=== PATIENT | female | born 1980 ===

== ENCOUNTER 2018-05-13 05:48 | Day surgery (SDC) | payer OTHER ==
[2018-05-07 07:39] VITALS: BMI 31.7
[2018-05-13] MEDS ORDERED: Bupivacaine 0.25% 20 ML INJ IJ ONE (07:32)
[2018-05-13] MEDS ORDERED: cefOXitin IV 2 gm in Dextrose 2 GM/50 ML BAG IVPB ONE (07:33)
[2018-05-13] MEDS ORDERED: Lidocaine/Epinephrine 1% 1:100000 10 ML IJ ONE (07:33)
[2018-05-13] MEDS ORDERED: Methylene Blue 10 mg/mL(10ml) IV ONE (07:33)
[2018-05-13] MEDS ORDERED: Midazolam 2 MG/2 ML VIAL ONE (07:38)
[2018-05-13] MEDS ORDERED: Propofol 10 mg/ml Inj (20 ML) ONE (07:38)
[2018-05-13] MEDS ORDERED: Neostigmine 1:1000 (1 mg/ml) Inj ONE (08:51)
[2018-05-13] MEDS ORDERED: HYDROmorphone 0.5 mg/0.5 ml ISec IVP PRN (09:13)
[2018-05-13 11:07] VITALS: BP 123/70; PULSE 81; RESP 18; TEMP 97; O2SAT 100
--- NOTE | 2018-05-13 20:12 | OP ---
PROCEDURE DATE: 05/13/2018 PREOPERATIVE DIAGNOSES: Uterine septum and pelvic adhesions. POSTOPERATIVE DIAGNOSES: Uterine septum, pelvic adhesions plus endometrial polyps. SURGEON: Isiah Blue MD. WORKERS' COMPENSATION HEARINGS OFFICER: Bjorn Jackman MD. FINDINGS: The patient is status post distal right salpingectomy. The patient has posterior cul-de-sac adhesions, also left perifimbrial adhesions. On chromotubation, there was no entry of dye into the left fallopian tube consistent with left cornual tubal occlusion; on the right tube, the distal portion is absent. Both ovaries are normal, and on hysteroscopy, the patient has left uterine wall endometrial polyp, which was resected. The patient has uterine septum spanning the anterior and posterior wall of the uterus about 1.5 cm thick which was resected up to the level of the fundus which the help of a resectoscope. ESTIMATED BLOOD LOSS: Less than 1 mL. COMPLICATIONS: Nil. DESCRIPTION OF PROCEDURE: After the risks, benefits, and alternatives of the planned procedures including, but not limited to infection, hemorrhage, deep vein thrombosis, atelectasis, pneumonia, pulmonary embolism, damage to the bladder, damage to the ureter, renal insufficiency, renal failure, wound infection, wound dehiscence, incisional hernia, keloid formation, damage to the large and small intestines, damage to the inferior vena cava and the aorta requiring extensive repair, anesthesia complications, electrolyte imbalance, possibility of , fluid overload, cerebral edema, embolism, and other complications that were discussed but are not listed above, have been explained to the patient and all her questions answered. Informed consent was obtained. The patient was taken to the operating room in a stable condition. Under a suitable level of general anesthesia, she was prepped and draped in a sterile fashion after having been placed in a dorsal lithotomy position. Gibbs catheter was inserted. Examination under anesthesia revealed a normal-size uterus anteverted with no adnexal mass. Through a left upper quadrant Means's point incision, a 5-mm trocar and sleeve was inserted under laparoscopic guidance and pneumoperitoneum of 3 liters was created. A 5-mm puncture site was made three fingerbreadths above the pubic symphysis through which a 5-mm trocar and sleeve were inserted. A HUMI catheter had been inserted at the beginning of the case. Posterior cul-de-sac adhesions were lysed. Chromotubation was performed only at the end of the procedure. Attention was then turned to the hysteroscopy. A weighted speculum was inserted into the vagina. The anterior lip of the cervix was grasped using a single-tooth tenaculum. The cervix was dilated to #18 Hanks dilator. A hysteroscope was then inserted. A 1-cm left uterine wall polyp was resected. Using a resectoscope, the uterine septum was resected all the way up to the level of the fundus which was approximately a 1.5 cm in thickness. The tissue from the resectoscope was submitted separately for pathology. At the end of the procedure, there was good hemostasis. A HUMI catheter was inserted into the cervix and insufflated into place. Attention was then turned back to the laparoscopy. Chromotubation was performed. There was good distention of the uterus, but no inflow of dye into the left fallopian tube consistent with cornual tubal occlusion. Peritoneal cavity was irrigated using copious amounts of saline. The saline was evacuated. The suprapubic sleeve was removed under laparoscopic guidance. Left upper quadrant sleeve was removed under laparoscopic guidance. Skin incisions were closed using 4-0 Monocryl. Instruments were then removed from the vagina. A gentle endometrial curettage was performed and tissue was submitted for pathology. An endocervical curettage had been performed prior to the dilation of the uterus. Good hemostasis was achieved. The patient was then transferred to the recovery room in a stable condition. Pad and instrument counts were correct x2. There were no complications. Isiah Blue MD
== END 2018-05-13 14:03 | disposition home or self-care (01) ==
LOC: C.SDS 05:48
PROVIDERS: ATTEND Obstetrics & Gynecology Reproductive Endocrinology
DX: N84.0 Polyp of corpus uteri (principal); N83.201 Unspecified ovarian cyst, right side; Q51.20 Other doubling of uterus, unspecified; N72 Inflammatory disease of cervix uteri; N73.6 Female pelvic peritoneal adhesions (postinfective)
CPT/HCPCS: 36415; 58558; 58560; 58661; 84702; 86850; 86900; 88305; J1170; J1885; J2250; J2405; J2704; J2710; J3010